=== PATIENT | male | born 1945 | race African-American/Black ===

== ENCOUNTER 2017-07-21 08:37 | Inpatient (IN) ==
[2017-07-21] MEDS ORDERED: cefTRIAXone 1,000 MG in SODIUM CHLORIDE 0.9% 100 ML IV STA (09:56)
[2017-07-21] MEDS ORDERED: ONDANSETRON 4 MG/2 ML VIAL IV STA (09:56)
[2017-07-21] MEDS ORDERED: FUROSEMIDE 100 MG/10 ML VIAL IV STA (09:56)
[2017-07-21] MEDS ORDERED: MORPHINE 2 MG/1 ML SYRINGE IV STA (09:56)
[2017-07-21] MEDS ORDERED: ALBUTEROL 2.5 MG/3 ML NEB RESP TX SCH (10:00)
[2017-07-21] MEDS ORDERED: methylPREDNISolone SOD SUC 125 MG/2 ML VIAL IV STA (10:02)
[2017-07-21] MEDS ORDERED: cefTRIAXone 1,000 MG VIAL ONE (10:25)
[2017-07-21] MEDS ORDERED: methylPREDNISolone SOD SUC 125 MG/2 ML VIAL ONE (10:26)
[2017-07-21] MEDS ORDERED: ONDANSETRON 4 MG/2 ML VIAL ONE (10:26)
[2017-07-21] MEDS ORDERED: FUROSEMIDE 20 MG/2 ML VIAL ONE (10:26)
[2017-07-21] MEDS ORDERED: MORPHINE 10 MG/1 ML VIAL ONE (10:28)
[2017-07-21 10:51] LABS: INR 1.1; PT Patient Result 11.1 SECS
[2017-07-21 11:23] LABS: Alanine Aminotransferase 23 U/L (16-61); Albumin 3.3 G/DL (3.4-5.0); Alkaline Phosphatase 86 U/L (45-117); Aspartate Amino Transferase 15 U/L (0-37); Blood Urea Nitrogen 17 MG/DL (7-18); Calcium 8.8 MG/DL (8.5-10.1); Glucose 90 MG/DL (74-106); Magnesium 2.4 MG/DL (1.8-2.4); Osmolality,Calculated 276.7 MOS/KG (273-304); Potassium 4.3 MMOL/L (3.5-5.1); Sodium 138 MMOL/L (136-145); Total Protein 7.5 G/DL (6.4-8.3); Troponin I Only < 0.015 NG/ML (0.00-0.045)
[2017-07-21 11:38] LABS: Apearance,Urine CLEAR (Clear); Bilirubin,Urine Negative (Negative); Blood, Urine Small mg/dL (Negative); Glucose,Urine (UA) Negative (Negative); Ketones,Urine Negative (Negative); Mucus,Urine Few /LPF (Occasional); Nitrite,Urine Negative (Negative); Protein,Urine 30 MG/DL; RBC,Urine 1 /HPF (0-4); Urine Color Yellow (Yellow); Urine Specific Gravity 1.025 (1.001-1.035); WBC,Urine 1 /HPF (0-6)
[2017-07-21 12:00] LABS: Basophils # 0.1 10*3/uL (0.0-0.2); Basophils % 0.3 % (0.0-0.8); Hematocrit 45.2 VOL% (42.0-52.0); Hemoglobin 14.8 GM/DL (14.0-18.0); Immature Granulocytes % 0.5 %; Immature Granulocytes Absolute 0.08 #; Lymphocytes # 1.9 10*3/uL (1.4-4.0); Mean Corpuscular HGB Conc 32.7 GM/DL (32-36); Mean Corpuscular Hemoglobin 29 PG (27-34); Mean Corpuscular Volume 87.8 FL (87-102); Mean Platelet Volume 11.4 FL (9.6-12.0); Monocytes # 1.8 10*3/uL (0.11-0.8); Monocytes % 10.5 % (1.7-12.7); Neutrophils # 13.4 10*3/uL (1.4-7.4); Neutrophils % 77.7 % (38.7-73.9); Platelet Count 171 T/CUMM (130-400); Red Blood Count 5.15 MC/CUMM (3.8-5.5); Red Cell Distribution Width 13.5 % (9.3-17.3); White Blood Count 17.2 T/CUMM (4-12)
[2017-07-21] MEDS ORDERED: ONDANSETRON 4 MG/2 ML VIAL IV PRN (14:27)
[2017-07-21] MEDS ORDERED: guaiFENesin/DM ER 600-30 MG TABLET PO PRN (14:27)
[2017-07-21] MEDS ORDERED: ACETAMINOPHEN 325 MG TABLET PO PRN (14:27)
[2017-07-21] MEDS ORDERED: DOCUSATE SODIUM 100 MG CAPSULE PO PRN (14:27)
[2017-07-21] MEDS ORDERED: ALBUTEROL/IPRATROPIUM 3 ML NEB RESP TX PRN (14:32)
[2017-07-21] MEDS: LEVOFLOXACIN INJ 750 MG in PREMIX 1 EACH IV SCH (15:10)
[2017-07-21] MEDS: NICOTINE 14 MG/24 HR PATCH TRANSDERM SCH (15:15)
[2017-07-21] MEDS ORDERED: DEXTROSE 50% 25 GM/50 ML VIAL IV PRN (17:09)
[2017-07-21] MEDS ORDERED: GLUCAGON 1 MG VIAL IM PRN (17:09)
[2017-07-21] MEDS ORDERED: INSULIN LISPRO 100 UNIT/ML SUBCUT ONE (17:24)
[2017-07-21] MEDS: methylPREDNISolone SOD SUC 40 MG/1 ML VIAL IV SCH (17:30)
[2017-07-21] MEDS: INSULIN LISPRO 100 UNIT/ML SUBCUT SCH ×2 (17:30→20:37)
[2017-07-21] MEDS: ENOXAPARIN 40 MG/0.4 ML SYRINGE SUBCUT SCH (20:37)
[2017-07-21] MEDS: BUDESONIDE/FORMOTEROL 160-4.5 INHALER 6 GM INH SCH (20:38)
[2017-07-21] MEDS: ALBUTEROL/IPRATROPIUM 3 ML NEB RESP TX SCH (20:41)
[2017-07-21] MEDS ORDERED: methylPREDNISolone SOD SUC 40 MG/1 ML VIAL IV SCH (21:00)
[2017-07-22] MEDS: ALBUTEROL/IPRATROPIUM 3 ML NEB RESP TX SCH ×4 (01:12→20:11)
[2017-07-22] MEDS: methylPREDNISolone SOD SUC 40 MG/1 ML VIAL IV SCH ×3 (01:30→20:42)
[2017-07-22 05:26] LABS: Basophils % 0.1 % (0.0-0.8); Hematocrit 41.1 VOL% (42.0-52.0); Hemoglobin 13.7 GM/DL (14.0-18.0); Immature Granulocytes % 0.5 %; Immature Granulocytes Absolute 0.06 #; Lymphocytes # 1.2 10*3/uL (1.4-4.0); Mean Corpuscular HGB Conc 33.3 GM/DL (32-36); Mean Corpuscular Hemoglobin 29 PG (27-34); Mean Platelet Volume 11.4 FL (9.6-12.0); Monocytes # 0.4 10*3/uL (0.11-0.8); Monocytes % 3.2 % (1.7-12.7); Neutrophils # 10.7 10*3/uL (1.4-7.4); Neutrophils % 86.2 % (38.7-73.9); Platelet Count 192 T/CUMM (130-400); Red Blood Count 4.78 MC/CUMM (3.8-5.5); Red Cell Distribution Width 13.4 % (9.3-17.3); White Blood Count 12.4 T/CUMM (4-12)
[2017-07-22 05:56] LABS: Calcium 8.5 MG/DL (8.5-10.1); Osmolality,Calculated 282.7 MOS/KG (273-304)
[2017-07-22 06:03] LABS: Risk Ratio 6.77; VLDL CHOLESTEROL 36.2 MG/DL
[2017-07-22] MEDS: NICOTINE 14 MG/24 HR PATCH TRANSDERM SCH (10:00)
[2017-07-22] MEDS: PANTOPRAZOLE 40 MG TABLET PO SCH (10:03)
[2017-07-22] MEDS: INSULIN LISPRO 100 UNIT/ML SUBCUT SCH ×3 (10:03→18:29)
[2017-07-22] MEDS: BUDESONIDE/FORMOTEROL 160-4.5 INHALER 6 GM INH SCH ×2 (10:04→20:48)
[2017-07-22] MEDS: LEVOFLOXACIN INJ 750 MG in PREMIX 1 EACH IV SCH (18:26)
[2017-07-22] MEDS: ENOXAPARIN 40 MG/0.4 ML SYRINGE SUBCUT SCH (20:42)
[2017-07-23] MEDS: ALBUTEROL/IPRATROPIUM 3 ML NEB RESP TX SCH ×4 (00:24→20:33)
[2017-07-23] MEDS: INSULIN LISPRO 100 UNIT/ML SUBCUT SCH ×5 (03:22→21:54)
[2017-07-23] MEDS: PANTOPRAZOLE 40 MG TABLET PO SCH (10:30)
[2017-07-23] MEDS: NICOTINE 14 MG/24 HR PATCH TRANSDERM SCH (10:31)
[2017-07-23] MEDS: methylPREDNISolone SOD SUC 40 MG/1 ML VIAL IV SCH ×2 (10:35→21:06)
[2017-07-23] MEDS: BUDESONIDE/FORMOTEROL 160-4.5 INHALER 6 GM INH SCH ×2 (10:37→21:09)
[2017-07-23] MEDS: LEVOFLOXACIN INJ 750 MG in PREMIX 1 EACH IV SCH (18:42)
[2017-07-23] MEDS: ENOXAPARIN 40 MG/0.4 ML SYRINGE SUBCUT SCH (21:05)
[2017-07-24] MEDS: ALBUTEROL/IPRATROPIUM 3 ML NEB RESP TX SCH ×3 (01:11→14:51)
[2017-07-24] MEDS: INSULIN LISPRO 100 UNIT/ML SUBCUT SCH ×2 (07:48→11:40)
[2017-07-24] MEDS: NICOTINE 14 MG/24 HR PATCH TRANSDERM SCH (11:40)
[2017-07-24] MEDS: BUDESONIDE/FORMOTEROL 160-4.5 INHALER 6 GM INH SCH (11:40)
[2017-07-24] MEDS: PANTOPRAZOLE 40 MG TABLET PO SCH (11:40)
[2017-07-24] MEDS: methylPREDNISolone SOD SUC 40 MG/1 ML VIAL IV SCH (11:42)
[2017-07-24 14:39] VITALS: BP 131/65
== END 2017-07-24 16:09 | disposition home or self-care (01) | DRG 192 ==
LOC: N.ED 08:37 → SUATTDRO 12:27 → N.EDINP 12:27 → N.TELEN 14:24
PROVIDERS: ADMIT Pediatrics; ATTEND Internal Medicine

== ENCOUNTER 2020-12-22 16:03 | Observation (INO) ==
[2020-12-22] MEDS ORDERED: ACETAMINOPHEN 325 MG TABLET PO ONE (16:46)
[2020-12-22] MEDS ORDERED: cefTRIAXone 1,000 MG in SODIUM CHLORIDE 0.9% 100 ML IV STA (17:11)
[2020-12-22] MEDS ORDERED: ALBUTEROL/IPRATROPIUM 3 ML NEB RESP TX STA (17:11)
[2020-12-22] MEDS ORDERED: methylPREDNISolone SOD SUC 125 MG/2 ML VIAL IV STA (17:11)
[2020-12-22 17:35] LABS: Basophils # 0.1 10*3/uL (0.0-0.2); Basophils % 0.3 % (0.0-0.8); Hematocrit 47.9 VOL% (42.0-52.0); Hemoglobin 15.8 GM/DL (14.0-18.0); Immature Granulocytes % 0.6 %; Immature Granulocytes Absolute 0.15 #; Lymphocytes # 1.7 10*3/uL (1.4-4.0); Lymphocytes % 7.4 % (21.2-54.2); Mean Corpuscular Volume 86.6 FL (87-102); Mean Platelet Volume 10.9 FL (9.6-12.0); Monocytes % 8.9 % (1.7-12.7); Neutrophils % 82.8 % (38.7-73.9); Platelet Count 170 T/CUMM (130-400); Red Blood Count 5.53 MC/CUMM (3.8-5.5); Red Cell Distribution Width 14.4 % (9.3-17.3); White Blood Count 23.1 T/CUMM (4-12)
[2020-12-22 17:49] LABS: Albumin 3.4 G/DL (3.4-5.0); Bilirubin,Total 0.6 MG/DL (0.2-1.0); Calcium 8.8 MG/DL (8.5-10.1); Osmolality,Calculated 273.8 MOS/KG (273-304); Potassium 3.8 MMOL/L (3.5-5.1); Total Protein 8.3 G/DL (6.4-8.2)
[2020-12-22 18:16] LABS: Anisocytosis 1+; Band Neutrophils 6 % (0-10); Lymphocytes 3 % (20-55); Macrocytosis Slight; Microcytosis 1+; Platelet Estimate Adequate; Polychromasia Slight; Segmented Neutrophils 85 % (50-85); Total Cells Counted 100
[2020-12-22] MEDS ORDERED: ACETAMINOPHEN 325 MG TABLET PO PRN (23:25)
[2020-12-22] MEDS ORDERED: ONDANSETRON 4 MG/2 ML VIAL IV PRN (23:25)
[2020-12-22] MEDS ORDERED: DEXTROSE 50% 25 GM/50 ML VIAL IV PRN (23:25)
[2020-12-22] MEDS ORDERED: GLUCAGON 1 MG VIAL IM PRN (23:25)
[2020-12-23] MEDS ORDERED: ALBUTEROL/IPRATROPIUM 3 ML NEB RESP TX SCH
[2020-12-23] MEDS: SODIUM CHLORIDE 0.45% 1,000 ML IV SCH ×3 (00:04→14:49)
[2020-12-23] MEDS: INSULIN REGULAR 100 UNIT/ML SUBCUT SCH ×4 (00:04→17:35)
[2020-12-23] MEDS: LEVOFLOXACIN INJ 750 MG/150 ML PREMIX IV SCH (00:05)
[2020-12-23] MEDS: DOCUSATE SODIUM 100 MG CAPSULE PO SCH ×3 (00:05→20:11)
[2020-12-23] MEDS: ALBUTEROL/IPRATROPIUM 3 ML NEB RESP TX SCH ×3 (08:08→19:50)
[2020-12-23] MEDS: PANTOPRAZOLE 40 MG TABLET PO SCH (09:20)
[2020-12-23] MEDS: methylPREDNISolone SOD SUC 40 MG/1 ML VIAL IV SCH (14:46)
[2020-12-24] MEDS: LEVOFLOXACIN INJ 750 MG/150 ML PREMIX IV SCH (00:04)
[2020-12-24] MEDS: ALBUTEROL/IPRATROPIUM 3 ML NEB RESP TX SCH ×4 (00:21→19:25)
[2020-12-24] MEDS: INSULIN REGULAR 100 UNIT/ML SUBCUT SCH ×5 (00:40→23:46)
[2020-12-24] MEDS: SODIUM CHLORIDE 0.45% 1,000 ML IV SCH ×2 (03:26→15:26)
[2020-12-24] MEDS: methylPREDNISolone SOD SUC 40 MG/1 ML VIAL IV SCH ×2 (03:30→14:47)
[2020-12-24 08:01] LABS: Basophils % 0.1 % (0.0-0.8); Hematocrit 44.3 VOL% (42.0-52.0); Hemoglobin 14.2 GM/DL (14.0-18.0); Immature Granulocytes % 0.6 %; Lymphocytes # 1.4 10*3/uL (1.4-4.0); Lymphocytes % 9.3 % (21.2-54.2); Mean Corpuscular HGB Conc 32.1 GM/DL (32-36); Mean Platelet Volume 11.2 FL (9.6-12.0); Monocytes % 4.3 % (1.7-12.7); Neutrophils % 85.7 % (38.7-73.9); Platelet Count 167 T/CUMM (130-400); Red Blood Count 4.98 MC/CUMM (3.8-5.5); Red Cell Distribution Width 14.6 % (9.3-17.3); White Blood Count 15.4 T/CUMM (4-12)
[2020-12-24 08:14] LABS: Calcium 8.8 MG/DL (8.5-10.1); Osmolality,Calculated 278.8 MOS/KG (273-304); Potassium 4.6 MMOL/L (3.5-5.1)
[2020-12-24] MEDS: DOCUSATE SODIUM 100 MG CAPSULE PO SCH ×2 (10:10→20:30)
[2020-12-24] MEDS: PANTOPRAZOLE 40 MG TABLET PO SCH (10:10)
[2020-12-24] MEDS: cefTRIAXone 1,000 MG in SODIUM CHLORIDE 0.9% 100 ML IV SCH (10:12)
[2020-12-24] MEDS: AZITHROMYCIN INJ 500 MG in SODIUM CHLORIDE 0.9% 250 ML IV SCH (11:48)
[2020-12-25] MEDS: ALBUTEROL/IPRATROPIUM 3 ML NEB RESP TX SCH ×3 (00:15→14:43)
[2020-12-25] MEDS: SODIUM CHLORIDE 0.45% 1,000 ML IV SCH ×2 (02:21→10:06)
[2020-12-25] MEDS: methylPREDNISolone SOD SUC 40 MG/1 ML VIAL IV SCH ×2 (03:23→14:15)
[2020-12-25] MEDS: INSULIN REGULAR 100 UNIT/ML SUBCUT SCH ×2 (06:30→11:59)
[2020-12-25] MEDS: DOCUSATE SODIUM 100 MG CAPSULE PO SCH (09:11)
[2020-12-25] MEDS: PANTOPRAZOLE 40 MG TABLET PO SCH (09:11)
[2020-12-25] MEDS: AZITHROMYCIN INJ 500 MG in SODIUM CHLORIDE 0.9% 250 ML IV SCH (11:23)
[2020-12-25] MEDS: cefTRIAXone 1,000 MG in SODIUM CHLORIDE 0.9% 100 ML IV SCH (11:26)
[2020-12-25 16:50] VITALS: BP 148/67
== END 2020-12-25 17:25 | disposition home or self-care (01) ==
LOC: N.ED 16:03 → N.EDINP 16:03 → N.3E 22:30
PROVIDERS: ADMIT Family Medicine; ATTEND Family Medicine